=== PATIENT | male | born 1950 | race Caucasian/White ===

== ENCOUNTER 2016-11-19 14:40 | Inpatient (IN) | payer OTHER ==
[~2016-11-19] VITALS: Ht 175.3 cm; Wt 104.5 kg
--- NOTE | ~2016-11-19 | CATHLAB ---
[facility] [address] [place] [address] INVASIVE PROCEDURE REPORT Name: SMALLMARIBETH Room #: 217-P [facility] IN .R.#: [id number] Admission: 11/19/16 Attend Phys: Hiro De La Cruz, Discharge: Date of : 54 Date of Service: 11/19/16 1848 Report #: [id number] THIS REPORT FOR: //name// CC: Hiro Humphrey DATE OF SERVICE: 11/19/2016 PROCEDURES: Left ventriculography, coronary angiography, abdominal aortography, PTCA stent to proximal LAD. DESCRIPTION OF PROCEDURE: The patient brought to the catheterization lab, had chest pain on and off for the last 4 hours. Troponin was negative. However, there were some subtle non-ST segmented changes of his EKG. Prior proximal LAD stents x 2. Last intervention was in 2012. He was lost to follow and relatively noncompliant with cardiovascular meds. He states he had some statin issues, takes none and a beta-neeraj; however, this was probably not a true allergy as he is said to being bradycardic. He was tachycardic here. IV Lopressor was administered without incident. I utilized a 4.0 EBU guide, 0.014 Luge wire for subtotal proximal LAD, proximal to the previously placed stents. The diagonal was previously jailed by the stents with mild encroachment and relatively small. The circumflex OM was large with mild disease. The dominant right had eccentric proximal lesion of 70% to 75% and a more distal lesion of 70%, which is somewhat hazy. This is a large, dominant vessel that may be placed for intervention down the road, but not in this setting. LV function in the anterior lateral wall lag, EF 40% to 45%. I utilized heparin and Integrilin. Additional heparin was given. He had been on a heparin drip and Integrilin bolus and drip and p.o. Effient. I utilized a 2.5 balloon with some difficulty, I was able to cross and exchanged over the wired magnet for a 3.0 x 14 drug-eluting stent and postdilated that up to 20 atmospheres, which is 3.5 mm in size. It slightly was telescoped into the prior stents. There was encroachment in the diagonal branch for the small and it was elected not to try to intervene, did not look significantly worse, but was able to restore PREET grade 3 flow and there was excellent apposition of this stent and slightly overlapped the prior stent. Resolution of EKG changes, subtle and chest pain that resolved completely. The vascular sheath is secured. Transferred to CCU in improved and guarded condition. He was hypertensive apparently. Hemodynamics was 170/90, LV 170/22. IMPRESSION: 1. Successful percutaneous transluminal coronary angioplasty stent of the proximal left anterior descending coronary artery, subtotal lesion proximal to prior stents with slight overlap, placed a 3.0 x 15 Resolute postdilated 3.5 mm in size, PREET grade 3 flow. 2. Ostial diagonal branch 70%, we will treat that medically. [address] [address] INVASIVE PROCEDURE REPORT Name: MARIBETH SMALL Room #: 217-P [facility] IN M.R.#: [id number] Admission: 11/19/16 Attend Phys: Hiro De La Cruz, Discharge: Date of : 54 Date of Service: 11/19/168 Report #: [id number] 3. Left main with mild ostial disease, 20% to 30%. 4. Circumflex marginal, large but nondominant, mild disease. 5. Large dominant right with an eccentric 75% proximal lesion and a more distal 70% hazy lesion; otherwise, the vessels well preserved and large. These 2 areas may need intervention at a later date, certainly not flow limiting at this time and the inferior wall is showing normal contractility. 6. Normal left ventricular size with anterior apical wall and lateral wall lag, ejection fraction of 45%. 7. Abdominal aorta is intact, mildly ectatic. RECOMMENDATIONS: Continue aggressive risk factor modification, dual antiplatelet therapy, p.o. Effient has been given. Integrilin drip will be maintained. Additional heparin was given. Vascular sheath removed in the CCU. No lifting for 48 hours. No lying in tub, Jacuzzi, or cantrell for a week. No MRI or dental work for 3 months. <ELECTRONICALLY SIGNED> By: Hiro De La Cruz MD, FACC 11/22/16 0903 1848 2324 Hiro De La Cruz MD, FACC /nt
--- NOTE | ~2016-11-19 | 2DMMODE ---
[facility] [address] [address] 2 D/M-MODE ECHOCARDIOGRAM Name: MARIBETH SMALL Room #: 217-P [facility] IN ..#: [id number] Admission: 11/19/16 Attend Phys: Hiro De La Cruz, Discharge: Date of : 54 Date of Service: 11/21/16 1127 Report #: [id number] THIS REPORT FOR: //name// APPROVED REPORT EXAM: Comprehensive 2D, Doppler, and color-flow Echocardiogram Patient Location: Bedside Blood Pressure: 91/54 mmHg HR: 102 bpm Other Information Study Quality: Adequate Indications CAD Hypertension/HDD Chest Pain 2D Dimensions LVEF(%): 35.09 (>50%) IVSd: 9.63 (7-11mm) LVOT Diam: 20.00 (18-24mm) LVDd: 37.61 mm PWd: 10.64 (7-11mm) Ascending Aorta: 34.38 mm LVDs: 31.44 (25-40mm) Rivero's LVEF: 35.09 % Volumes Left Atrial Volume (Systole) Single Plane 4CH: 40.00 mL Single Plane 2CH: 26.67 mL LA ESV Index: 17.00 mL/m2 Aortic Valve AoV Peak Homer.: 1.12 m/s AO Peak Gr.: 5.60 mmHg LV Max P.80 mmHg LV Max: 0.97 m/s Mitral Valve MV PHT: 34.84 ms MV E Max Homer.: 0.62 m/s E/A Ratio: 0.6 MV A Homer.: 1.07 m/s MV Decel. Time: 120.14 ms [facility] [address] [place] [address] 2 D/M-MODE ECHOCARDIOGRAM Name: MARIBETH SMALL Room #: 217-P [facility] IN [facility].#: [id number] Admission: 11/19/16 Attend Phys: Hiro De La Cruz, Discharge: Date of : 54 Date of Service: 11/21/16 1127 Report #: [id number] Pulmonary Valve PV Peak Homer.: 0.85 m/s PV Peak Gr.: 2.87 mmHg Tricuspid Valve RAP Estimate: 5.00 mmHg Left Ventricle The left ventricle is normal size. There is moderate to severe hypokinesis in the anterior, mid-distal septal, and apical clinton. There is normal left ventricular wall thickness. Left ventricular systolic function is mild to moderately decreased. LVEF is 35 40% Transmitral Doppler flow pattern suggests impaired LV relaxation. Right Ventricle The right ventricle is normal size. The right ventricular systolic function is normal. Atria The left atrium size is normal. The right atrium size is normal. Aortic Valve The aortic valve is normal in structure. No aortic regurgitation is present. There is no aortic valvular stenosis. Mitral Valve The mitral valve is normal in structure. There is no mitral valve regurgitation noted. Tricuspid Valve The tricuspid valve is normal in structure. There is no tricuspid valve regurgitation noted. Pulmonic Valve The pulmonary valve is normal in structure. There is no pulmonic valvular regurgitation. Great Vessels The aortic root is normal in size. IVC is normal in size and collapses >50% with inspiration. Pericardium There is no pericardial effusion. <Conclusion> [facility] [address] [place] [address] 2 D/M-MODE ECHOCARDIOGRAM Name: MARIBETH SMALL Room #: 217-P [facility] IN .R.#: [id number] Admission: 11/19/16 Attend Phys: Hiro De La Cruz, Discharge: Date of : 54 Date of Service: 11/21/16 1127 Report #: [id number] The left ventricle is normal size. There is normal left ventricular wall thickness. Left ventricular systolic function is mild to moderately decreased.ant apical dital septal mod -severe hypokinetic LVEF is 35 40% Transmitral Doppler flow pattern suggests impaired LV relaxation. The left atrium size is normal. The aortic valve is normal in structure. There is no mitral valve regurgitation noted. There is no pericardial effusion. The pulmonary valve is normal in structure. The tricuspid valve is normal in structure. The mitral valve is normal in structure. There is no pericardial effusion. <ELECTRONICALLY SIGNED> By: Hiro De La Cruz MD, [facility] 11/21/16 1127 112 26 Hiro De La Cruz MD, [facility] /INF
--- NOTE | ~2016-11-19 | EKG ---
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 : 1950 Requested By: Phong Moreira Order Number: [id number] MD: El Perdomo Measurements Intervals [place] Rate: 86 P: 18 [place]: 134 QRS: 26 QRSD: 87 T: -3 QT: 361 QTc: 432 Interpretive Statements Sinus rhythm Anterior infarct,age-indeterminate Minimal ST depression, inferior leads No previous ECG available for comparison Electronically Signed On 11-21-2016 15:07:54 CDT by El Perdomo [email or web address] <ELECTRONICALLY SIGNED> By: El Perdomo MD, [facility] 11/21/16 1507 1615 14 El Perdomo MD, [facility] /EPI
--- NOTE | ~2016-11-19 | EKG ---
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 : 1950 Requested By: Hiro De La Cruz Order Number: [id number] MD: El Perdomo Measurements Intervals [place] Rate: 102 P: 62 [place]: 149 QRS: 78 QRSD: 86 T: 94 QT: 359 QTc: 468 Interpretive Statements Sinus tachycardia Consider right atrial enlargement Anterior infarct, age-indeterminate No previous ECG available for comparison Electronically Signed On 11-21-2016 15:14:49 CDT by El Perdomo [email or web address] <ELECTRONICALLY SIGNED> By: El Perdomo MD, [facility] 11/21/16 1514 D: 03754 075 El Perdomo MD, FACC /EPI
--- NOTE | ~2016-11-19 | H ---
[facility] [place] [address] HISTORY AND PHYSICAL Name: MARIBETH SMALL Room #: 217-P ADM IN M.R.#: [id number] Admission: 11/19/16 Attend Phys: Hiro De La Cruz MD, Discharge: Date of : 54 Report #: [id number] THIS REPORT FOR: //name// CC: Hiro Humphrey DATE OF SERVICE: 11/19/2016 HISTORY OF PRESENT ILLNESS: The patient is a 66-year-old male who has been lost to follow up with us from since 05/2013. Dr. Perdomo who apparently re-dilated and stented an LAD. It looks like at [facility] prior to that he had had an LAD bifurcating lesion and was stented and then dilated this diagonal branch. His home medications hydrocodone for chronic back pain, oxycodone, tizanidine, levothyroxine, sublingual nitroglycerin, diltiazem 180, irbesartan 300 and Imdur 30. Apparently had some issues with beta-blockers and statins in the past and contrast dye, although all of this is very questionable. He has some intense substernal chest pain with some features like prior cardiac pain, but not very difficult to figure out exactly which is which. There is some nonspecific ST abnormalities noted in inferior leads and looks like an old anterior septal infarct, but there is no ST elevation. PAST MEDICAL HISTORY: Positive for coronary artery disease with prior stents, hypertension, chronic pain, narcotic use, splenectomy, nephrolithiasis, STATIN INTOLERANCE WITH SUSPECTED HYPERCHOLESTEROLEMIA, hypertension and tobacco use. SOCIAL HISTORY: He is accompanied by his . He is disabled. He smokes. No alcohol. FAMILY HISTORY: Positive family history, although he is not sure who, believes possibly brother or father. LABORATORY WORK: Sodium 136, potassium 3.8 and creatinine 1.1. Liver function tests looked to be normal. Alk phos is elevated at 124. Magnesium 1.7, being replaced. Troponin is negative, less than 0.04. Lipids are pending. H and H is 14 and 42 with the white count of 15.5. Chest x-ray: No acute process. No acute findings. PHYSICAL EXAMINATION: VITAL SIGNS: His pulse is sinus, 110 to 120. Seems easily agitated, but he is sleeping ____ and telling me that he has pain. Blood pressure 150/100. It was higher. HEENT: Eyes reveal xanthelasmas. Pharynx is clear. NECK: Shows preserved upstrokes without JVD or bruits. LUNGS: Prolonged expiratory phase. CARDIAC: Regular rate and rhythm. S1 and S2 distant. [facility] [address] [place] [address] HISTORY AND PHYSICAL Name: MARIBETH SMALL Room #: 217-P [facility] IN M.R.#: [id number] Admission: 11/19/16 Attend Phys: Hiro De La Cruz MD, Discharge: Date of : 54 Report #: [id number] ABDOMEN: Soft and slightly tender in the midepigastric. EXTREMITIES: No edema. Pulses diminished. NEUROLOGIC: Nonfocal. SKIN: Warm and dry without xanthoma or ulcer. MUSCULOSKELETAL: Generalized arthritic changes. ASSESSMENT: 1. Chest pain. 2. Coronary artery disease with history of prior left anterior descending diagonal stents, last intervention in 2012. 3. 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 4. Hypercholesterolemia. 5. Hypertension. 6. Noncompliance. 7. Chronic pain, on opioid usage. RECOMMENDATIONS AND PLAN: I did ____ he just has myalgias. We will give aspirin and Lipitor. He is on a heparin drip and we will proceed to the clinical laboratory manager to delineate the anatomy and possible intervention. I do not see an option here based on his history. Although this is questionable. No definite acute EKG changes, but persistent pain. I will also try GI cocktail. Risks, benefits and alternatives were discussed with him. We will proceed on. <ELECTRONICALLY SIGNED> By: Hiro De La Cruz MD, FACC 11/22/16 0904 1705 1904 Hiro De La Cruz MD, FACC /nt
--- NOTE | ~2016-11-19 | EKG ---
[place] [address] [address] [facility] [employer] [place] [address] ELECTROCARDIOGRAM REPORT Name: STACIMARIBETH Room #: 217-P ADM IN M.R.#: [id number] Admission: 11/19/16 Attend Phys: Hiro De La Cruz MD, Discharge: Date of : 54 Report #: [id number] THIS REPORT FOR: //name// 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
[~2016-11-19 14:40] MED LIST: ACETAMINOPHEN325 M1 PO; ADULT LOW DOSE81 MG PO; ASPIRIN325 PO; AVAPRO 150 MG150 M1 PO; AVAPRO300 MG PO; CARDIZEM CD180 MG PO; CARISOPRODOL 3350 M1 PO; COLACE100 MG PO; EFFIENT10 MG PO; HYDROCODON-ACE1 EAC4 PO; IBUPROFEN 600600 M1 PO; IMDUR 30 MG TAB30 M1 PO; LEVOTHROID125 MCG PO; MEDROL DOSPAK21 TA1 PO; MEDROLDOSEPACK; NITROGLYCERIN0.4 MG SL; NORCO 5-325 TA1 EACH PO; OXYCODONE HCL5 M1 PO; PERCOCET 5-3251 EACH PO; PERCOCET 7.5-51 EACH PO; PREDNISONE 20 M20 MG PO; PROAIR HFA8.5 GM IH; ROXICODONE5 M1 PO; TAMSULOSIN HCL0.4 MG PO; TIZANIDINE HCL4 MG PO; ZOFRAN ODT4 MG PO
[2016-11-19 14:44] VITALS: BP 157/82
[2016-11-19 15:12] LABS: ABSOLUTE NEUTROPHILS 11.9 thou/uL (1.4-8.2); BASOPHILS 0.5 % (0.0-2.0); EOSINOPHILS 0.2 % (0.0-3.0); HEMATOCRIT 42.9 % (42.0-52.0); HEMOGLOBIN 14.4 gm/dL (14.0-18.0); MCH 29.6 pg (26.0-34.0); MCHC 33.5 g/dL (28.0-37.0); MCV 88.1 fL (80.0-100.0); MONOCYTES 2.1 % (1.0-8.0); PLATELET COUNT 269 thou/uL (150-400); POLYS 77.2 % (36.0-66.0); RBC 4.87 mil/uL (4.50-6.00); RDW 14.2 % (10.5-14.5); WBC 15.5 thou/uL (4.0-11.0)
[2016-11-19 15:15] LABS: MANUAL DIFF NO
[2016-11-19 15:18] LABS: ANION GAP 12 mmol/L (7-16); BUN 15 mg/dL (7-18); CALCIUM 8.8 mg/dL (8.5-10.1); CHLORIDE 102 mmol/L (98-107); CO2 22 mmol/L (21-32); CREATININE 1.1 mg/dL (0.6-1.3); GLUCOSE 206 mg/dL (70-99); POTASSIUM 3.8 mmol/L (3.5-5.1); SODIUM 136 mmol/L (136-145)
[2016-11-19 15:26] LABS: ALBUMIN 3.4 g/dL (3.4-5.0); ALKALINE PHOSPHATASE 124 U/L (46-116); MAGNESIUM 1.7 mg/dL (1.8-2.4); SGOT 37 U/L (15-37); SGPT 43 U/L (30-65); TOTAL BILIRUBIN 0.3 mg/dL (<0.1-1.0); TOTAL PROTEIN 6.9 g/dL (6.4-8.2); TROPONIN-I < 0.04 ng/mL (<0.04-0.07)
[2016-11-19 16:30] LABS: APTT 26.1 Seconds (24.5-32.8); PROTIME 10.5 Seconds (9.3-11.4)
[2016-11-19 20:06] VITALS: BP 146/89
[2016-11-20 00:13] VITALS: BP 150/99
[2016-11-20 04:16] LABS: HEMATOCRIT 43.7 % (42.0-52.0); HEMOGLOBIN 14.6 gm/dL (14.0-18.0); MCH 29.4 pg (26.0-34.0); MCHC 33.3 g/dL (28.0-37.0); MCV 88.2 fL (80.0-100.0); RBC 4.96 mil/uL (4.50-6.00); RDW 14.2 % (10.5-14.5); WBC 15.9 thou/uL (4.0-11.0)
[2016-11-20 04:44] LABS: ANION GAP 9 mmol/L (7-16); BUN 15 mg/dL (7-18); CALCIUM 8.9 mg/dL (8.5-10.1); CHLORIDE 101 mmol/L (98-107); CHOLESTEROL 292 mg/dL (<200); CO2 25 mmol/L (21-32); GLUCOSE 181 mg/dL (70-99); HDL CHOLESTEROL 87 mg/dL (>40); LDL CHOLESTEROL 186 mg/dL (<100); POTASSIUM 4.5 mmol/L (3.5-5.1); SODIUM 135 mmol/L (136-145); TC:HDL 3.4 Ratio (Not establshd); TRIGLYCERIDE 95 mg/dL (<150); VLDL 19 mg/dL (<40)
[2016-11-20 05:04] LABS: TROPONIN-I 70.55 ng/mL (<0.04-0.07)
[2016-11-20 08:26] VITALS: BP 126/63
[2016-11-20 11:04] VITALS: BP 134/78
[2016-11-20 15:50] VITALS: BP 115/71
[2016-11-20 20:34] VITALS: BP 104/68
[2016-11-20 23:43] VITALS: BP 93/61
[2016-11-21 05:02] VITALS: BP 103/60
[2016-11-21 08:50] VITALS: BP 91/54
[2016-11-21 12:00] VITALS: BP 89/44
[2016-11-21 16:00] VITALS: BP 98/63
[2016-11-21 20:00] VITALS: BP 97/58
[2016-11-22 03:50] VITALS: BP 97/65
[2016-11-22 07:50] VITALS: BP 98/65
[2016-11-22] MEDS ORDERED: COZAAR 50 MG TA50 M1 PO (08:41)
[2016-11-22] MEDS ORDERED: ATORVASTATIN CA40 MG PO (08:41)
[2016-11-22] MEDS ORDERED: BYSTOLIC 5 MG5 M1 PO (08:41)
[2016-11-22] MEDS ORDERED: EFFIENT10 MG PO (08:41)
[2016-11-22] MEDS ORDERED: ASPIRIN325 PO (08:42)
[2016-11-22] MEDS ORDERED: PROTONIX40 M4 PO (08:46)
[2016-11-22 09:59] VITALS: BP 98/65
== END 2016-11-22 10:50 | disposition home or self-care (01) | DRG 249 ==
LOC: ER 14:40 → EROBS 16:20 → 2N 16:20
PROVIDERS: Emergency Medicine; Internal Medicine Cardiovascular Disease
PROC: B2151ZZ Fluoroscopy of Left Heart using Low Osmolar Contrast (ICD-10-PCS; principal; 2016-11-19)
PROC: 02703DZ Dilation of Coronary Artery, One Artery with Intraluminal Device, Percutaneous Approach (ICD-10-PCS; principal; 2016-11-19)
PROC: B2111ZZ Fluoroscopy of Multiple Coronary Arteries using Low Osmolar Contrast (ICD-10-PCS; principal; 2016-11-19)
PROC: B4101ZZ Fluoroscopy of Abdominal Aorta using Low Osmolar Contrast (ICD-10-PCS; principal; 2016-11-19)
PROC: 4A023N7 Measurement of Cardiac Sampling and Pressure, Left Heart, Percutaneous Approach (ICD-10-PCS; principal; 2016-11-19)
DX: I25.10 Atherosclerotic heart disease of native coronary artery without angina pectoris (principal); I10 Essential (primary) hypertension; E03.9 Hypothyroidism, unspecified; G89.29 Other chronic pain; M54.9 Dorsalgia, unspecified; F11.90 Opioid use, unspecified, uncomplicated; E78.00 Pure hypercholesterolemia, unspecified; I25.5 Ischemic cardiomyopathy; Z91.19 Patient's noncompliance with other medical treatment and regimen; Z79.82 Long term (current) use of aspirin; Z79.899 Other long term (current) drug therapy; Z88.8 Allergy status to other drugs, medicaments and biological substances; Z91.041 Radiographic dye allergy status; Z79.891 Long term (current) use of opiate analgesic; Z90.81 Acquired absence of spleen; Z87.442 Personal history of urinary calculi
CPT/HCPCS: 10081

== ENCOUNTER 2017-05-26 05:29 | Emergency (ER) | payer OTHER ==
[~2017-05-26] VITALS: Ht 175.3 cm; Wt 99.8 kg
--- NOTE | ~2017-05-26 | EKG ---
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
[~2017-05-26 05:29] MED LIST changes: +ATORVASTATIN CA40 MG PO; +BYSTOLIC 5 MG5 M1 PO; +COZAAR 50 MG TA50 M1 PO; +PROTONIX40 M4 PO
[2017-05-26 06:46] LABS: ABSOLUTE NEUTROPHILS 8.9 thou/uL (1.4-8.2); BASOPHILS 1.3 % (0.0-2.0); EOSINOPHILS 3.2 % (0.0-3.0); HEMOGLOBIN 13.5 gm/dL (14.0-18.0); LYMPHOCYTES 31.8 % (24.0-44.0); MCH 29.6 pg (26.0-34.0); MCHC 33.8 g/dL (28.0-37.0); MCV 87.7 fL (80.0-100.0); MONOCYTES 6.6 % (1.0-8.0); PLATELET COUNT 279 thou/uL (150-400); POLYS 57.1 % (36.0-66.0); RBC 4.57 mil/uL (4.50-6.00); RDW 15.1 % (10.5-14.5); WBC 15.5 thou/uL (4.0-11.0)
[2017-05-26 06:49] LABS: MANUAL DIFF NO
[2017-05-26 06:59] LABS: ANION GAP 8 mmol/L (7-16); BUN 13 mg/dL (7-18); CHLORIDE 105 mmol/L (98-107); CO2 26 mmol/L (21-32); CREATININE 0.7 mg/dL (0.7-1.3); GLUCOSE 96 mg/dL (74-106); POTASSIUM 4.1 mmol/L (3.5-5.1); SODIUM 139 mmol/L (136-145)
[2017-05-26 07:00] LABS: APTT 30.1 Seconds (24.5-32.8); PROTIME 10.7 Seconds (9.3-11.4)
[2017-05-26 07:04] LABS: ALBUMIN 3.2 g/dL (3.4-5.0); ALKALINE PHOSPHATASE 125 U/L (46-116); SGOT 20 U/L (15-37); SGPT 17 U/L (30-65); TOTAL BILIRUBIN 0.3 mg/dL (<0.1-1.0); TOTAL PROTEIN 6.8 g/dL (6.4-8.2); TROPONIN-I < 0.04 ng/mL (<0.04-0.07)
[2017-05-26] MEDS ORDERED: OXYCODONE HCL10 MG PO (07:09)
[2017-05-26] MEDS ORDERED: PREDNISONE 20 M20 MG PO (07:09)
[2017-05-26 07:36] VITALS: BP 153/98
== END 2017-05-26 08:12 | disposition home or self-care (01) ==
LOC: ER 05:29
PROVIDERS: Emergency Medicine
DX: Z76.0 Encounter for issue of repeat prescription (principal); M94.0 Chondrocostal junction syndrome [Tietze]; S20.211A Contusion of right front wall of thorax, initial encounter; I25.10 Atherosclerotic heart disease of native coronary artery without angina pectoris; I10 Essential (primary) hypertension; E03.9 Hypothyroidism, unspecified; G89.29 Other chronic pain; M54.9 Dorsalgia, unspecified; F17.210 Nicotine dependence, cigarettes, uncomplicated; Z88.8 Allergy status to other drugs, medicaments and biological substances; Z91.041 Radiographic dye allergy status; W18.39XA Other fall on same level, initial encounter; Y93.89 Activity, other specified; Y92.89 Other specified places as the place of occurrence of the external cause; Y99.8 Other external cause status

== ENCOUNTER 2017-09-25 05:11 | Emergency (ER) | payer OTHER ==
[~2017-09-25] VITALS: Ht 175.3 cm; Wt 106.6 kg
--- NOTE | ~2017-09-25 | EKG ---
[place] [address] [place] [address] ELECTROCARDIOGRAM REPORT Name: MARIBETH SMALL [facility] [id number] Admission: 09/25/17 Attend Phys: Discharge: 09/25/17 Date of : 54 Report #: [id number] THIS REPORT FOR: //name// [facility] ED Test Date: 2017-09-25 Test Time: 06:14:25 Pat Name: MARIBETH SMALL Department: Room: Gender: Stadium Manager: SANGITA : 1950 Requested By: Yandel Gallagher Order Number: [id number] MD: Anirudh Ponce Measurements Intervals [place] Rate: 93 P: 30 [place]: 159 QRS: 48 QRSD: 96 T: 60 QT: 358 QTc: 446 Interpretive Statements Sinus rhythm Anterior infarct, old Baseline wander in lead(s) V2 Compared to ECG 05/26/2017 06:30:16 No significant changes Electronically Signed On 09-25-2017 9:54:52 RN HEMODIALYSIS by Anirudh Ponce [email or web address] <ELECTRONICALLY SIGNED> By: Anirudh Ponce MD 09/25/17 0954 0614 0614 Anirudh Ponce MD /DANY
--- NOTE | ~2017-09-25 | D ---
[facility] [place] [address] DISCHARGE SUMMARY Name: STACIMARIBETH Room #: DEP MARLY Valerio#: [id number] Admission: 09/25/17 Attend Phys: Discharge: 09/25/17 Date of : 54 Report #: [id number] THIS REPORT FOR: //name// CC: Merced Humphrey DATE OF SERVICE: 09/25/2017 HOSPITAL COURSE: The patient is a 66-year-old male admitted with abnormal stress test and some stable anginal symptoms. Subsequently, the catheterization lab revealed proximal RCA and distal RCA lesions. They were successfully dilated and stented. Marked improvement in the distal flow. Mild LAD and circ disease. Prior LAD, no other occlusive disease was noted. He had a 2.7. DICTATION ENDS HERE. <ELECTRONICALLY SIGNED> By: Hiro De La Cruz MD, FACC 10/06/17 2137 0934 1753 Hiro De La Cruz MD, FACC /nt
[~2017-09-25 05:11] MED LIST changes: +OXYCODONE HCL10 MG PO; +ROXICODONE5 M2 PO
[2017-09-25 06:35] LABS: ABSOLUTE NEUTROPHILS 9.6 thou/uL (1.4-8.2); BASOPHILS 0.6 % (0.0-2.0); EOSINOPHILS 1.2 % (0.0-3.0); LYMPHOCYTES 26.7 % (24.0-44.0); MCH 29.4 pg (26.0-34.0); MCHC 33.3 g/dL (28.0-37.0); MCV 88.1 fL (80.0-100.0); MONOCYTES 6.4 % (1.0-8.0); PLATELET COUNT 319 thou/uL (150-400); POLYS 65.1 % (36.0-66.0); RBC 5.11 mil/uL (4.50-6.00); RDW 13.9 % (10.5-14.5); WBC 14.8 thou/uL (4.0-11.0)
[2017-09-25 06:48] LABS: ANION GAP 11 mmol/L (7-16); BUN 20 mg/dL (7-18); CALCIUM 8.8 mg/dL (8.5-10.1); CHLORIDE 106 mmol/L (98-107); CO2 22 mmol/L (21-32); CREATININE 0.9 mg/dL (0.7-1.3); GLUCOSE 123 mg/dL (74-106); POTASSIUM 4.2 mmol/L (3.5-5.1); SODIUM 139 mmol/L (136-145)
[2017-09-25 06:56] LABS: ALBUMIN 3.2 g/dL (3.4-5.0); MAGNESIUM 2.1 mg/dL (1.8-2.4); SGOT 20 U/L (15-37); SGPT 30 U/L (30-65); TOTAL BILIRUBIN 0.2 mg/dL (<0.1-1.0); TOTAL PROTEIN 6.9 g/dL (6.4-8.2); TROPONIN-I < 0.04 ng/mL (<0.06)
[2017-09-25] MEDS ORDERED: PENICILLIN VK500 M1 PO (07:30)
[2017-09-25 08:21] VITALS: BP 152/83
[2017-09-25 08:34] LABS: URINE BILIRUBIN NEGATIVE (Negative); URINE BLOOD NEGATIVE (Negative); URINE CLARITY CLEAR; URINE COLOR YELLOW; URINE GLUCOSE-RANDOM* NEGATIVE (Negative); URINE KETONES NEGATIVE (Negative); URINE LEUKOCYTES-REFLEX NEGATIVE (Negative); URINE NITRITE-REFLEX NEGATIVE (Negative); URINE PROTEIN (DIPSTICK) NEGATIVE (Negative); URINE UROBILINOGEN 0.2 E.U./dl (0.2-1.0)
[2017-09-25 08:46] LABS: AMP/METHAMP Negative (Negative); BARBITURATES Negative (Negative); BENZODIAZEPINES POSITIVE (Negative); COCAINE Negative (Negative); METHADONE Negative (Negative); OPIATES POSITIVE (Negative); PCP Negative (Negative)
== END 2017-09-25 08:23 | disposition home or self-care (01) ==
LOC: ER 05:11
PROVIDERS: Emergency Medicine
DX: J06.9 Acute upper respiratory infection, unspecified (principal); M54.5 Low back pain; G89.29 Other chronic pain; I10 Essential (primary) hypertension; E03.9 Hypothyroidism, unspecified; I25.10 Atherosclerotic heart disease of native coronary artery without angina pectoris; F17.210 Nicotine dependence, cigarettes, uncomplicated; Z88.1 Allergy status to other antibiotic agents

== ENCOUNTER 2017-09-30 06:48 | Outpatient (CLI) | payer OTHER ==
[~2017-09-30] VITALS: Ht 175.3 cm; Wt 108.9 kg
--- NOTE | ~2017-09-30 | CATHLAB ---
[facility] [place] [address] INVASIVE PROCEDURE REPORT Name: SMALLMARIBETH Room #: [facility] KADE Valerio#: [id number] Admission: 09/30/17 Attend Phys: Hiro De La Cruz, Discharge: 10/01/17 Date of : 54 Date of Service: 11/09/17 1448 Report #: [id number] THIS REPORT FOR: //name// APPROVED REPORT Patient Details Patient Status: In-Patient Room #: The patient is a 66 year-old male Event Personnel Hiro De La Cruz Cooler Conveyor Loader, Bakari Anthony RN, Genny Johnson Sandifer, David Monitor Procedures Performed Art Access - R femoral artery* Left Heart Cath w/or w/o Coronaries [id number] [facility] MARK Place w/wo Plasty Single RCA [id number] 22882 Initial Mod Sed Same Phys/QHP Gr5y [id number] 61792 Mod Sed Same Phys/QHP Ea [id number] Procedure Narrative The patient was brought urgently to the Cardiac Catheterization Laboratory and was prepped and draped in a sterile manner. A 6 fr sheath was inserted into the right femoral artery. Coronary angiography was performed using coronary diagnostic catheters. The right coronary system was accessed and visualized with a JR 4 catheter. The left coronary system was accessed and visualized with a JL 4 catheter. The left ventricle was accessed and visualized with a Pigtail catheter. Left ventriculogram was performed in UP projection. An aortogram of the abdominal aorta was performed. Closure device was deployed with a 6 Fr Mynx. The patient tolerated the procedure well and there were no complications associated with the procedure. There was no hematoma. Fluoro Time: 10.80 minutes Dose: DAP 49635.00 cGycm2 Contrast Type and Amount: Omnipaque 155 ml Hemodynamics The aortic pressure is 115/76 mmHg with a mean of 93 mmHg. PCI Technique Lesion Percutaneous coronary intervention was performed on the mid right coronary artery. A LAUNCHER 6FR JR 4 #[id number] Guide Catheter was used to engage the ostium. A Luge Wire .014 x 182CM #[id number] Interventional Guidewire was used to cross the lesion. [facility] [address] [place] [address] INVASIVE PROCEDURE REPORT Name: MARIBETH SMALL Room #: [facility] Iman#: [id number] Admission: 09/30/17 Attend Phys: Hiro De La Cruz, Discharge: 10/01/17 Date of : 54 Date of Service: 11/09/17 1448 Report #: [id number] BALLOON DILATION A Balloon catheter Sprinter OTW 2.5 x 12 #[id number] was inserted and inflated up to 8.00atm for 13seconds. STENT DEPLOYMENT A drug-eluting stent RESOLUTE OTW 2.75 X 14 #[id number] was inserted and inflated up to 12.00atm for 22seconds. STENT DEPLOYMENT A drug-eluting stent RESOLUTE OTW 2.75 X 12 #[id number] was inserted and inflated up to 15.00atm for 27seconds. Additional Inflation: 18.00atm for 26seconds. PCI Technique Lesion 2 Percutaneous Coronary Intervention was performed on the proximal right coronary artery. Conclusion #1 successful PTCA stent of the proximal RCA lesion with a 27 5 x 14 drug-eluting stent to 3.1 mm. #2 successful PTCA stent of the mid distal RCA lesion with a 2.75 x 12 drug-eluting stent to 3.0 mm healed in 0% residual and PREET grade 3 flow this is a dominant vessel. #3 left main with mild disease giving rise to LAD and circumflex and ramus branch #4 proximal LAD previously stented mild in-stent restenosis otherwise widely patent vessel to the apex #5 ramus intermedius branch is widely patent #6 smaller nondominant circumflex patent #7 normal left ventricular size with mild inferior hypokinesis #8 abdominal aorta is intact with without significant aneurysm formation. #9 selective left and right renal arteries have mild ostial disease left greater than right Radiation plan continue aggressive risk factor modification dual antiplatelet therapy to continue to the CCU in stable condition <ELECTRONICALLY SIGNED> By: Hiro De La Cruz MD, FACC 11/09/17 1448 1448 1448 Hiro De La Cruz MD, FACC /INF
--- NOTE | ~2017-09-30 | EKG ---
[address] [address] ELECTROCARDIOGRAM REPORT Name: SMALLMARIBETH K Room #: 215-[facility]#: [id number] Admission: 09/30/17 Attend Phys: Hiro De La Cruz MD, Discharge: Date of : 54 Report #: [id number] THIS REPORT FOR: //name// 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
--- NOTE | ~2017-09-30 | D ---
[facility] [place] [address] DISCHARGE SUMMARY Name: MARIBETH SMALL Room #: DEP Drew Valerio#: [id number] Admission: 09/30/17 Attend Phys: Hiro De La Cruz MD, Discharge: 10/01/17 Date of : 54 Report #: [id number] THIS REPORT FOR: //name// CC: Hiro Humphrey MD DATE OF SERVICE: 10/01/2017 HOSPITAL COURSE: A 66-year-old male admitted with stable anginal symptoms, abnormal stress test showing inferior wall ischemia. Old stent in his LAD, which was widely patent. We brought him to the catheterization lab. The dominant right had a 90% proximal and a 95% distal more longer lesion in the RCA. This was subsequently dilated and stented with a 2.75 x 14 in the distal segment up to 3.1 mm and 2.75 x 12 proximal up to 3.1 mm. PREET grade 3 was noted. Heparin and Integrilin were utilized. He is up and ambulating, doing well. He feels much better he stated. Troponin is 0.09. His H and H and creatinine are pending. I expect them to remain normal. DISCHARGE MEDICATIONS: He will be discharged to home on his home medications. These will include Effient 10 mg a day, full aspirin 325 for a month and back down to a baby, metoprolol succinate 100 a day, losartan 50, Pen-Vee K to complete his course of antibiotics that he had prior to coming in, oxycodone p.r.n., Ambien p.r.n. He has failed statins. We gave him some statin here, but we may need to consider asking PCSK9 injections. He has failed simvastatin, atorvastatin, pravastatin, lovastatin and rosuvastatin now. His LDL was 188, so certainly not in our favor. We will initiate PCSK9 inhibitors when he returns in followup. This has been initiated since his last visit. No lifting for 48 hours. No lying in tub, Jacuzzi or [place] for a week. No MRI or dental work for 3 months. DISCHARGE DIAGNOSES: 1. Coronary artery disease, successful percutaneous transluminal coronary angioplasty stent of the proximal and distal right coronary artery lesions as stated above. Mild left anterior descending and circumflex disease. 2. Hypertension. 3. Hypercholesterolemia. 4. Borderline diabetes. A followup is scheduled in 3 months in my office. [address] [address] DISCHARGE SUMMARY Name: MARIBETH SMALL Kulwinder Room #: DEP CHINEDU Iman#: [id number] Admission: 09/30/17 Attend Phys: Hiro De La Cruz MD, Discharge: 10/01/17 Date of : 54 Report #: [id number] Thank you for assisting in care of this patient. <ELECTRONICALLY SIGNED> By: Hiro De La Cruz MD, [facility] 10/06/17 2142 [id number] 180 Hiro De La Cruz MD, FACC /nt
--- NOTE | ~2017-09-30 | EKG ---
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
[~2017-09-30 06:48] MED LIST changes: +PENICILLIN VK500 M1 PO
[2017-09-30 07:16] VITALS: BP 137/81
[2017-09-30] MEDS ORDERED: ASPIR 8181 MG PO ×2 (07:34→16:56)
[2017-09-30] MEDS ORDERED: TOPROL XL100 MG PO (07:37)
[2017-09-30 15:49] VITALS: BP 170/84
[2017-09-30 22:30] VITALS: BP 126/68
[2017-10-01 05:20] VITALS: BP 116/56
[2017-10-01 08:09] VITALS: BP 119/71
[2017-10-01 10:13] VITALS: BP 119/71
[2017-10-01 10:40] LABS: HEMATOCRIT 43.2 % (42.0-52.0); HEMOGLOBIN 14.3 gm/dL (14.0-18.0); MCH 29.6 pg (26.0-34.0); MCHC 33.2 g/dL (28.0-37.0); MCV 89.4 fL (80.0-100.0); RBC 4.83 mil/uL (4.50-6.00); RDW 14.2 % (10.5-14.5); WBC 15.7 thou/uL (4.0-11.0)
[2017-10-01 10:47] LABS: CREATININE 0.9 mg/dL (0.7-1.3); POTASSIUM 4.3 mmol/L (3.5-5.1)
[2017-10-01 12:52] VITALS: BP 119/71
== END 2017-10-01 13:25 | disposition home or self-care (01) ==
LOC: CATH 06:48 → 2N 15:36 → CATH 10-01 13:25
PROVIDERS: Internal Medicine Cardiovascular Disease
DX: I25.10 Atherosclerotic heart disease of native coronary artery without angina pectoris (principal); I10 Essential (primary) hypertension; E03.9 Hypothyroidism, unspecified; E78.5 Hyperlipidemia, unspecified; J44.9 Chronic obstructive pulmonary disease, unspecified; I21.3 ST elevation (STEMI) myocardial infarction of unspecified site; F17.210 Nicotine dependence, cigarettes, uncomplicated

== ENCOUNTER → 2019-10-15 | Outpatient (CLI) | payer OTHER ==
[~2019-10-15] MED LIST changes: +ASPIR 8181 MG PO; +TOPROL XL100 MG PO
== END ==
LOC: SJCVCIMAG 09:41
DX: I37.1 Nonrheumatic pulmonary valve insufficiency (principal); I25.10 Atherosclerotic heart disease of native coronary artery without angina pectoris; I25.5 Ischemic cardiomyopathy; I10 Essential (primary) hypertension; E78.01 Familial hypercholesterolemia; J44.9 Chronic obstructive pulmonary disease, unspecified; I25.2 Old myocardial infarction; F17.200 Nicotine dependence, unspecified, uncomplicated; Z91.19 Patient's noncompliance with other medical treatment and regimen; Z98.61 Coronary angioplasty status

== ENCOUNTER 2020-02-03 12:16 | Emergency (ER) | payer OTHER ==
[~2020-02-03] VITALS: Ht 175.3 cm; Wt 110.2 kg
[2020-02-03 12:20] VITALS: BP 176/93
[2020-02-03 13:47] LABS: URINE BILIRUBIN NEGATIVE (Negative); URINE BLOOD TRACE (Negative); URINE CLARITY CLEAR; URINE COLOR YELLOW; URINE GLUCOSE-RANDOM* NEGATIVE (Negative); URINE KETONES NEGATIVE (Negative); URINE LEUKOCYTES-REFLEX NEGATIVE (Negative); URINE NITRITE-REFLEX NEGATIVE (Negative); URINE PROTEIN (DIPSTICK) NEGATIVE (Negative); URINE SPECIFIC GRAVITY 1.025 (1.005-1.035); URINE UROBILINOGEN 0.2 E.U./dl (0.2-1.0)
[2020-02-03 13:55] LABS: AMP/METHAMP Negative (Negative); BARBITURATES Negative (Negative); BENZODIAZEPINES POSITIVE (Negative); COCAINE Negative (Negative); METHADONE Negative (Negative); OPIATES Negative (Negative); PCP Negative (Negative)
== END 2020-02-03 14:20 | disposition left against medical advice (07) ==
LOC: ER 12:16
PROVIDERS: Emergency Medicine
DX: M54.42 Lumbago with sciatica, left side (principal); I25.10 Atherosclerotic heart disease of native coronary artery without angina pectoris; I10 Essential (primary) hypertension; G89.29 Other chronic pain; J44.9 Chronic obstructive pulmonary disease, unspecified; E11.9 Type 2 diabetes mellitus without complications; F17.210 Nicotine dependence, cigarettes, uncomplicated; Z79.899 Other long term (current) drug therapy; Z91.041 Radiographic dye allergy status; Z88.8 Allergy status to other drugs, medicaments and biological substances; Z79.82 Long term (current) use of aspirin

== ENCOUNTER → 2020-11-10 | Outpatient (CLI) | payer OTHER | LOC: SJCVC 14:33 | PROVIDERS: ATTEND Internal Medicine Cardiovascular Disease | DX: I25.10 Atherosclerotic heart disease of native coronary artery without angina pectoris (principal); I25.5 Ischemic cardiomyopathy; I10 Essential (primary) hypertension; E78.01 Familial hypercholesterolemia; J44.9 Chronic obstructive pulmonary disease, unspecified; G89.29 Other chronic pain; J98.4 Other disorders of lung; E78.00 Pure hypercholesterolemia, unspecified; F16.90 Hallucinogen use, unspecified, uncomplicated; F17.210 Nicotine dependence, cigarettes, uncomplicated; Z91.19 Patient's noncompliance with other medical treatment and regimen; Z72.89 Other problems related to lifestyle; Z79.82 Long term (current) use of aspirin; Z79.899 Other long term (current) drug therapy; Z88.1 Allergy status to other antibiotic agents; Z88.8 Allergy status to other drugs, medicaments and biological substances ==

== ENCOUNTER → 2020-12-10 | Outpatient (CLI) | payer OTHER | LOC: SJCVCIMAG 08:17 | PROVIDERS: ATTEND Internal Medicine Cardiovascular Disease | DX: I25.10 Atherosclerotic heart disease of native coronary artery without angina pectoris (principal); R06.00 Dyspnea, unspecified; I10 Essential (primary) hypertension; E78.5 Hyperlipidemia, unspecified; I25.2 Old myocardial infarction; I42.9 Cardiomyopathy, unspecified; Z79.899 Other long term (current) drug therapy ==

== ENCOUNTER 2021-03-05 22:40 | Inpatient (IN) | payer OTHER ==
[~2021-03-05] VITALS: Ht 175.3 cm; Wt 103.8 kg
--- NOTE | ~2021-03-05 | EMS ---
[place] [address] EMS Patient Care Report Name: MARIBETH SMALL Room #: PRE M.R.#: [id number] Admission: Attend Phys: Discharge: Date of : 54 Report #: [id number] THIS REPORT FOR: //name// Report Transmitted: 03/05/2021 22:49 EMS Care Summary [place], [place]/[facility] Incident [id number] @ 03/05/2021 22:06 Incident Location [address] [place] [address] Patient MARIBETH SMALL Male, 70 Years 1950 Patient Address [address] [place] [address] Patient History Hypertension (HTN),Cardiac - Stent,Hypothyroidism, Patient Allergies Other drug allergy, Patient Medications Lorcet, Chief Complaint CHEST PAIN WITH EXERTION Disposition Transported No Lights/[place] Dispatch Reason Chest Pain (Non-Traumatic) Transported To [facility] Narrative DISPATCHED TO A CHEST PAIN. ARRIVED ON SCENE TO FIND MALE PATIENT STANDING IN THE RESTROOM TRYING TO URINATE. PATIENT SAID HE NEEDED TO FINISH BEFORE EVALUATION. PATIENT SAID HE BEGAN HAVING SHARP MIDSTERNAL CHEST PAIN THIS AFTERNOON AFTER DOING SOME YARD WORK. HE SAID IT RADIATED TO [place] [address] EMS Patient Care Report Name: MARIBETH SMALL Room #: PRE Iman#: [id number] Admission: Attend Phys: Discharge: Date of : 54 Report #: [id number] GOTTEN WORSE THROUGHOUT THE DAY. PATIENT SAID HE WOULD LIKE TO WALK OUT OF THE HOUSE TO THE COT AT THE FRONT DOOR. HE WAS ASSISTED TO THE COT, SEATED, SECURED WITH STRAPS, AND MOVED TO THE AMBULANCE FOR FURTHER EVALUATION. PATIENT SAID HE HAD NOT TAKEN ANYTHING FOR THE PAIN YET. HE SAID IT WORSENS WITH PALPATION. HIS VITALS AND A 12 LEAD WERE OBTAINED. IVS WERE ATTEMPTED AND ASPIRIN WAS ADMINISTERED. NITRO WAS WITHHELD DUE TO NO IV. PATIENT WAS TRANSPORTED TO THE HOSPITAL WITH VITALS AND INTERVENTIONS MONITORED. UPON ARRIVAL AT AT THE HOSPITAL PATIENT WAS MOVED TO ED ROOM 9 ON THE COT AND ASSISTED IN MOVING OVER TO THE HOSPITAL BED. PATIENT CARE WAS TURNED OVER TO ED NURSING STAFF. Initial Vitals @22:24MI Suspected: false @22:29P: 105,BP: 121/80, @22:24P: 103,BP: 109/73, @22:19P: 102, @22:15P: 87,SpO2: 98, @22:35P: 107,R: 18,BP: 94/66,Pain: 8/10,GCS: 15,SpO2: 97,Revised Trauma: 12, @22:17P: 106,R: 18,BP: 119/53,Pain: 8/10,GCS: 15,Glucose: 70,SpO2: 98,Revised Trauma: 12, Assessments @22:11MENTAL:Person Oriented,Time Oriented,Place Oriented,Event Oriented,SKIN:Cold,Diaphoresis,HEENT:Head/Face: No Abnormalities,Neck/Airway: No Abnormalities,LUNG SOUNDS:General: No Abnormalities,Left Upper: No Abnormalities,Right Upper: No Abnormalities,Left Lower: No Abnormalities,Right Lower: No Abnormalities,ABDOMEN:General: No Abnormalities,Left Upper: No Abnormalities,Right Upper: No Abnormalities,Left Lower: No Abnormalities,Right Lower: No Abnormalities,PELVIS//GI:No Abnormalities,EXTREMITIES:Capillary Refill: Right Upper: < 2 Sec,Left Arm: No Abnormalities,Right Arm: No Abnormalities,Left Leg: No Abnormalities,Right Leg: No Abnormalities,PULSE:Radial: 2+ Normal,NEURO:No Abnormalities, Impression Chest Pain / Discomfort Procedures @22:2412-Lead ECGResponse: UnchangedSucceeded@22:1912-Lead ECGResponse: UnchangedFailed@22:11ALS AssessmentResponse: UnchangedSucceeded@22:153-Lead ECGResponse: UnchangedSucceeded@22:25Saline Lock 0cc (20 ga) Site: Antecubital-RightResponse: UnchangedFailed@22:23Saline Lock 0cc (20 ga) Site: Antecubital-LeftResponse: UnchangedFailed@22:21Aspirin - 324 Milligrams (mg) - OralResponse: Unchanged Timeline 22:05,Call Received 22:05,Dispatch Notified [address] [address] EMS Patient Care Report Name: MARIBETH SMALL Room #: MARIANELA Valerio#: [id number] Admission: Attend Phys: Discharge: Date of : 54 Report #: [id number] 22:06,Dispatched 22:07,En Route 22:09,On Scene 22:11,At Patient 22:11,ALS Assessment,Response: UnchangedSucceeded, 22:15,3-Lead ECG,Response: UnchangedSucceeded, 22:15,BP: / M,PULSE: 87,RR: R,SPO2: 98 Ox,ETCO2: ,BG: ,PAIN: ,GCS: , 22:17,BP: 119/53 M,PULSE: 106,RR: 18 R,SPO2: 98 Ox,ETCO2: ,B,PAIN: 8,GCS: 15, 22:19,12-Lead ECG,Response: UnchangedFailed, 22:19,BP: / M,PULSE: 102,RR: R,SPO2: Ox,ETCO2: ,BG: ,PAIN: ,GCS: , 22:21,Aspirin - 324 Milligrams (mg) - Oral,Response: Unchanged 22:23,Saline Lock 0cc 20 ga Site: Antecubital-Left,Response: UnchangedFailed, 22:24,BP: 109/73 M,PULSE: 103,RR: R,SPO2: Ox,ETCO2: ,BG: ,PAIN: ,GCS: , 22:24,12-Lead ECG,Response: UnchangedSucceeded, 22:24,BP: / M,PULSE: ,RR: R,SPO2: Ox,ETCO2: ,BG: ,PAIN: ,GCS: , 22:25,Saline Lock 0cc 20 ga Site: Antecubital-Right,Response: UnchangedFailed, 22:27,Depart Scene 22:29,BP: 121/80 M,PULSE: 105,RR: R,SPO2: Ox,ETCO2: ,BG: ,PAIN: ,GCS: , 22:35,BP: 94/66 M,PULSE: 107,RR: 18 R,SPO2: 97 Ox,ETCO2: ,BG: ,PAIN: 8,GCS: 15, 22:37,At Destination 22:49,Call Closed Disclaimer v1.1 Copyright 2020 [employer] This EMS Care Summary contains data elements from the applicable legal record (which may be displayed differently). It is designed to provide pertinent information for the following purposes: continuity of care, clinical quality, and state data reporting. The complete legal record is available to ED staff and administrators of the receiving hospital in [facility]'s Patient Tracker. All data is provided "as is."
[2021-03-05 22:51] VITALS: BP 115/50
[2021-03-05 23:45] LABS: HEMATOCRIT 46.1 % (42.0-52.0); HEMOGLOBIN 15.5 gm/dL (14.0-18.0); MCH 30.5 pg (26.0-34.0); MCHC 33.6 g/dL (28.0-37.0); MCV 90.8 fL (80.0-100.0); PLATELET COUNT 295 thou/uL (150-400); RBC 5.08 mil/uL (4.50-6.00); WBC 22.6 thou/uL (4.0-11.0)
[2021-03-05 23:52] LABS: ANION GAP 12 mmol/L (7-16); BUN 46 mg/dL (7-18); CALCIUM 9.3 mg/dL (8.5-10.1); CHLORIDE 100 mmol/L (98-107); CO2 23 mmol/L (21-32); CREATININE 2.8 mg/dL (0.7-1.3); GLUCOSE 123 mg/dL (74-106); POTASSIUM 4.5 mmol/L (3.5-5.1); SODIUM 135 mmol/L (136-145)
[2021-03-06] VITALS (7 sets, daily range): BP systolic 105–121; BP diastolic 41–70
[2021-03-06 00:01] LABS: TROPONIN-I <0.06 ng/mL (<0.06)
[2021-03-06 00:17] LABS: ABSOLUTE NEUTROPHILS 20.3 thou/uL (1.4-8.2); LARGE PLATELETS FEW; PLATELET ESTIMATE NORMAL
[2021-03-06] MEDS ORDERED: CLOPIDOGREL75 MG PO (01:36)
[2021-03-06] MEDS ORDERED: NEXLIZET 180-11 EACH PO (01:37)
[2021-03-06 01:52] LABS: URINE BILIRUBIN NEGATIVE (Negative); URINE BLOOD NEGATIVE (Negative); URINE CLARITY CLEAR; URINE COLOR YELLOW; URINE GLUCOSE-RANDOM* NEGATIVE (Negative); URINE KETONES NEGATIVE (Negative); URINE LEUKOCYTES-REFLEX NEGATIVE (Negative); URINE NITRITE-REFLEX NEGATIVE (Negative); URINE PROTEIN (DIPSTICK) NEGATIVE (Negative); URINE SPECIFIC GRAVITY >= 1.030 (1.005-1.035); URINE UROBILINOGEN 0.2 E.U./dl (0.2-1.0)
[2021-03-06 05:37] LABS: HEMATOCRIT 46.1 % (42.0-52.0); HEMOGLOBIN 15.3 gm/dL (14.0-18.0); MCH 30.6 pg (26.0-34.0); MCHC 33.1 g/dL (28.0-37.0); MCV 92.4 fL (80.0-100.0); RBC 4.99 mil/uL (4.50-6.00); RDW 14.1 % (10.5-14.5); WBC 20.9 thou/uL (4.0-11.0)
[2021-03-06 06:00] LABS: ANION GAP 14 mmol/L (7-16); BUN 41 mg/dL (7-18); CALCIUM 8.5 mg/dL (8.5-10.1); CHLORIDE 101 mmol/L (98-107); CO2 20 mmol/L (21-32); GLUCOSE 100 mg/dL (74-106); POTASSIUM 3.9 mmol/L (3.5-5.1); SODIUM 135 mmol/L (136-145)
[2021-03-06 06:01] LABS: APTT 34.1 Seconds (24.5-32.8); INR 1.14; PROTIME 12.3 Seconds (10.5-12.1)
[2021-03-06 06:09] LABS: TROPONIN-I <0.06 ng/mL (<0.06)
[2021-03-06 07:16] LABS: CHOLESTEROL 180 mg/dL (<200); HDL CHOLESTEROL 49 mg/dL (>40); LDL CHOLESTEROL 107 mg/dL (<100); TC:HDL 3.7 Ratio (Not establshd); TRIGLYCERIDE 122 mg/dL (<150); VLDL 24 mg/dL (<40)
--- NOTE | 2021-03-06 07:23 | EKG ---
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 : 1950 Requested By: Reena Gibson Order Number: [id number] MD: Almas Hale Measurements Intervals [place] Rate: 106 P: 38 AL: 154 QRS: 62 QRSD: 86 T: 68 QT: 327 QTc: 435 Interpretive Statements Sinus tachycardia Anterior infarct, old ST elevation, consider early inferior injury Compared to ECG 10/01/2017 08:01:09 ST (T wave) deviation now present Sinus rhythm no longer present Myocardial infarct finding still present Electronically Signed On 03-06-2021 7:23:09 CDT by Almas Hale [email or web address] <ELECTRONICALLY SIGNED> By: Almas Hale MD, FACC 03/06/21 0723 2246 2246 Almas Hale MD, [facility] /EPI
--- NOTE | 2021-03-06 07:40 | NUR ---
ASSUMED CARE OF PT AT 0345 FROM ER, PT WAS ADMITED WITH ACUTE CP. UPON ARRIVAL TO UNIT AND AMBULATION INTO BED PT BEGAN TO C/O CP 06/14. CP PROTOCOL WAS INITIATED WITH 2L O2 VIA NC, NITRO AND EKG. UPON REASSESMENT PAIN HAD NOT SUBSIDED WITH NITRO, MANAGER PEDIATRIC CHARLES GIRON ORDERED, NITRO PASTE AND HEPARIN DRIP, AND MORPHINE IVP. UPON REASSESSMENT OF PAIN AFTER ADMINISTRATION OF MORPHINE, AND SECOND NITRO PILL, PT STATED MILD RELIEF 04/14. 0500 1INCH OF NITRO PAST APPLIED TO RIGHT CHEST AND UPON REASSESSMENT PATIENT WAS SLEEPING IN NO APARENT DISTRESS.0620 HEPARIN INITIATED.
[2021-03-06 09:25] LABS: AMP/METHAMP Negative (Negative); BARBITURATES Negative (Negative); BENZODIAZEPINES POSITIVE (Negative); COCAINE Negative (Negative); METHADONE Negative (Negative); OPIATES POSITIVE (Negative); PCP Negative (Negative)
--- NOTE | 2021-03-06 11:56 | 2DMMODE ---
[facility] [place] [address] 2 D/M-MODE ECHOCARDIOGRAM Name: MARIBETH SMALL Room #: 219-P ADM IN M.R.#: [id number] Admission: 03/06/21 Attend Phys: Mateus Gentile MD Discharge: Date of : 54 Report #: [id number] THIS REPORT FOR: cc: Lucius Humphrey MD, Steven A. MD Santiago, Patrick MD [facility] ~ APPROVED REPORT Study performed: 03/06/2021 10:32:59 EXAM: Comprehensive 2D, Doppler, and color-flow Echocardiogram Patient Location: Bedside Room #: 219 Status: routine BSA: 2.16 HR: 97 bpm BP: 105/54 mmHg Rhythm: NSR Other Information Study Quality: Good Indications Chest Pain 2D Dimensions RVDd: 29.62 mm IVSd: 8.64 (7-11mm) LVOT Diam: 23.11 (18-24mm) LVDd: 53.80 mm PWd: 8.83 (7-11mm) Ascending Ao: 32.99 (22-36mm) LVDs: 37.82 (25-40mm) Left Atrium: 36.31 (27-40mm) Aortic Root: 36.10 mm IVC: 16.00 mm Volumes Left Atrial Volume (Systole) Single Plane 4CH: 66.04 mL Single Plane 2CH: 37.71 mL LA ESV Index: 25.00 mL/m2 Aortic Valve AoV Peak Homer.: 1.37 m/s AO Peak Gr.: 7.56 mmHg LVOT Max P.41 mmHg LVOT Max V: 1.16 m/s KHARI Vmax: 3.54 cm2 [facility] [employer] [address] [place] [address] 2 D/M-MODE ECHOCARDIOGRAM Name: SMALLMARIBETH Room #: 219-[facility]#: [id number] Admission: 03/06/21 Attend Phys: Mateus Gentile, Discharge: Date of : 54 Report #: [id number] Mitral Valve E/A Ratio: 0.9 MV Decel. Time: 207.83 ms MV E Max Homer.: 0.82 m/s MV A Homer.: 0.92 m/s MV PHT: 60.27 ms IVRT: 124.57 ms Pulmonary Valve PV Peak Homer.: 0.93 m/s PV Peak Gr.: 3.44 mmHg Pulmonary Vein P Vein S: 0.37 m/s P Vein A: 0.29 m/s P Vein D: 0.24 m/s P Vein A Dur.: 83.0 msec P Vein S/D Ratio: 1.54 Left Ventricle The left ventricle is normal size. There is normal LV segmental wall motion. There is normal left ventricular wall thickness. Left ventricular systolic function is normal. The left ventricular ejection fraction is within the normal range. LVEF is 50-55%. Grade I - abnormal relaxation pattern. Right Ventricle The right ventricle is normal size. The right ventricular systolic function is normal. Atria The left atrium size is normal. The right atrium size is normal. Aortic Valve The aortic valve is normal in structure. No aortic regurgitation is present. There is no aortic valvular stenosis. Mitral Valve The mitral valve is normal in structure. There is no mitral valve regurgitation noted. No evidence of mitral valve stenosis. Tricuspid Valve The tricuspid valve is normal in structure. There is no tricuspid valve regurgitation noted. Pulmonic Valve The pulmonary valve is normal in structure. [place] [address] 2 D/M-MODE ECHOCARDIOGRAM Name: SMALLMARIBETH Room #: 219-P [facility] [place] [facility]#: [id number] Admission: 03/06/21 Attend Phys: Mateus Gentile, Discharge: Date of : 54 Report #: [id number] valvular regurgitation. Great Vessels The aortic root is normal in size. IVC is normal in size and collapses >50% with inspiration. Pericardium There is no pericardial effusion. <Conclusion> Normal left ventricular size/wall thickness Ejection fraction 50-55% mild anteroseptal hypokineses Grade 1 diastolic dysfunction Normal right ventricular size/function Normal atrial size Color-flow Doppler study was performed of the aortic/mitral/tricuspid/pulmonary valve Normal aortic/mitral valve structure and function No tricuspid valve insufficiency No pericardial effusion Normal aortic root size <ELECTRONICALLY SIGNED> By: Almas Hale MD, FACC 03/06/21 1156 1156 1156 Almas Hale MD, FACC /INF
[2021-03-06 13:38] LABS: D-DIMER 0.48 ug/mLFEU (0.19-0.50)
[2021-03-06 13:43] LABS: APTT > 139.0 Seconds (24.5-32.8)
--- NOTE | 2021-03-06 15:22 | NUR ---
Chart reviewed and case discussed with the care team. Pt admitted from home with cp after mowing the yard. Cardiac hx is extensive and workup is in progress with renal us and heart cath anticipated today. The pt's pcp is Dr. Humphrey. He lives with his Darlin and was indep and active prior to admission. No cm interventions indicated at this time. Will follow along should dc needs arise.
--- NOTE | 2021-03-06 17:19 | EKG ---
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 : 1950 Requested By: Sabrina Chowdhury Order Number: [id number] MD: Almas Hale Measurements Intervals [place] Rate: 97 P: 64 ID: [id number] QRS: 82 QRSD: 90 T: 77 QT: 340 QTc: 432 Interpretive Statements Sinus rhythm Anterior infarct, old Artifact in lead(s) I,aVR,aVL,aVF,V1,V2 Compared to ECG 03/05/2021 22:46:04 Sinus tachycardia no longer present ST (T wave) deviation still present Electronically Signed On 03-06-2021 17:19:05 CDT by Almas Hale [email or web address] <ELECTRONICALLY SIGNED> By: Almas Hale MD, [facility] 03/06/21 1719 0357 0357 Almas Hale MD, [facility] /EPI
--- NOTE | 2021-03-06 18:15 | NUR ---
PATIENT HAD 2 CARDIAC STENTS PER REPORT. RIGHT GROIN SITE REMAINS CDI, NO BLEEDING OR HEMATOMA NOTED. PATIENT REPORTS "I FEEL SO MUCH BETTER NOW" AFTER STENTS PLACED. VSS. NO OTHER ACUTE CHANGES THIS SHIFT.
[2021-03-07 00:06] LABS: GLYCOHEMOGLOBIN (HGB A1C) 5.8 % (4.8-5.6)
[2021-03-07 03:31] VITALS: BP 99/53
[2021-03-07 04:33] LABS: ALBUMIN 2.8 g/dL (3.4-5.0); CALCIUM 8.2 mg/dL (8.5-10.1); PHOSPHORUS 1.9 mg/dL (2.5-4.9); POTASSIUM 4.4 mmol/L (3.5-5.1)
--- NOTE | 2021-03-07 04:50 | NUR ---
PT IS ALERT AND ORIENTED X4 . LUNGS ARE CLEAR UP IN ROOM. GROIN SITE CLEAN DRY AND INTACT NO HEMATOMA NOTED. UP THIS AM. NO CHEST PAIN COMMPLAINS OF BACK PAIN NOTED FROM BED.ABDOMEN IS ROUND AND SOFT. PAIN MEDS GIVEN FOR BACK PAIN. RESTED DURING THE NIGHT TIME. CALL LIGHT WITHIN NURING.
[2021-03-07 07:06] VITALS: BP 123/72
[2021-03-07] MEDS ORDERED: COLACE 100 MG100 MG PO (11:14)
[2021-03-07 11:34] VITALS: BP 105/71
[2021-03-07 11:37] VITALS: BP 105/71
--- NOTE | 2021-03-07 12:19 | NUR ---
PATIENT DC TO HOME PER ORDERS. IV DC FROM LEFT FA. PATIENT HAS NO C/O CHEST PAIN OR SHORTNESS OF BREATH. DC ORDERS DISCUSSED WITH PATIENT. PATIENT AMBULATED TO PRIVATE VEHICLE TO HOME.
--- NOTE | 2021-03-11 15:23 | CATHLAB ---
[facility] [address] [place] [address] INVASIVE PROCEDURE REPORT Name: MARIBETH SMALL Room #: 219-P DIS IN M.R.#: [id number] Admission: 03/06/21 Attend Phys: Mateus Gentile MD Discharge: 03/07/21 Date of : 54 Report #: [id number] THIS REPORT FOR: cc: Lucius Humphrey MD, Steven A. MD Lammoglia, Francisco J. 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 Risk Factors Coronary Artery Disease Previous Procedures/Diagnoses Previous PCI Procedure Narrative The Right Groin^ was infiltrated with 1% Lidocaine subcutaneous anesthesia. A PINNACLE 6FR Sheath #[id number] sheath was inserted into the RFA^. Coronary angiography was performed using coronary diagnostic catheters. The right coronary system was accessed and visualized with a JR4 catheter. The left coronary system was accessed and visualized with a JL4 catheter. The left ventricle was accessed and visualized with a PIGTAIL catheter. Left ventricular/Aortic Valve [facility] [place] [place] [address] INVASIVE PROCEDURE REPORT Name: SMALLMARIBETH Room #: 219-P [facility] IN ..#: [id number] Admission: 03/06/21 Attend Phys: Mateus Gentile, Discharge: 03/07/21 Date of : 54 Report #: [id number] gradient assessed via catheter pullback. Closure device was deployed with a 6 Fr MYNXGRIP 6/7F #[id number]. Hemostasis was obtained with manual pressure following sheath removal without any complications. The patient tolerated the procedure well and there were no complications associated with the procedure. There was no hematoma. Intraoperative Conscious Sedation Sedation start time: 1128 Case end Time: 1215 Morphine: 4 mg Fluoro Time: 7.30 minutes Dose: DAP 49385.70 cGycm2 2295 mGy Contrast Type and Amount: Visipaque 160 ml Coronary Angiography The patient's coronary anatomy is right dominant. Diagnostic Cath Left Main Moderate caliber vessel of normal origin trifurcates left into descending, ramus intermedius, left circumflex free of high-grade disease. There is mild plaquing proximally LAD Moderate caliber type III vessel. The proximal mid LAD there is a prior stent noted with irregularities and in terminal narrowing of approximately 30%. The vessel continues in the interventricular sulcus giving rise to septal diagonal branches. First diagonal branch arose prior to the origin of the stent. Diagonal 1 Small caliber vessel with a 50% ostial lesion then continues along the anterolateral wall free of high-grade disease Circumflex Moderate caliber vessel gives rise to a marginal lateral wall branch. There is luminal irregularities noted. Then terminates as a posterior atrial branch extending to the right and left atrium posteriorly. OM1 Moderate caliber vessel with mild irregularities no high-grade lesions are noted Right Coronary Large-caliber vessel of normal origin which has diffuse mild irregularities throughout its course. In the proximal portion before the acute margin there is a narrowing that appears to be grossly 60% in diameter narrowing but there is a focal point that appears to be higher grade. The vessel continues on to the crux of the heart gives rise to posterior descending artery and terminates the posterior wall branch R PDA Moderate caliber vessel rapidly tapering tortuous in its course with moderate lesions that do not appear to be [address] [address] INVASIVE PROCEDURE REPORT Name: MARIBETH SMALL Room #: 219-P [facility] IN M.R.#: [id number] Admission: 03/06/21 Attend Phys: Mateus Gentile, Discharge: 03/07/21 Date of : 54 Report #: [id number] flow-limiting Ramus Moderate caliber vessel without high-grade lesions noted, it courses on the lateral aspect the heart terminates a trifurcating vessel Left Ventriculography Left Ventriculography was not performed. Hemodynamics The aortic pressure is 121/69 mmHg with a mean of 91 mmHg. The left ventricular pressure is 136/10 mmHg with a mean of mmHg. The left ventricular end diastolic pressure is 32 mmHg. Pullback from the left ventricle to the aorta revealed a mm gradient across the aortic valve. PCI Technique Decision was made to proceed with revascularization of the right coronary lesion now. Reason for this that was the absence of significant disease in the left coronary system and inferior EKG changes noted on admission with classic symptoms. There was haziness consistent with thrombus. A 6 [place] JR4 catheter was then engaged with a coronary ostium and wire was advanced. This is now 0.014 steerable wire. Following deployment of the wire the stent was positioned and deployed to encompass the eccentric higher grade portion of the lesion. This was dilated per stent protocol and taken to quarter size. The proximal portion of the lesion was still evident although not high-grade a second short stent of 8 mm in length was positioned proximal to the initial stent and deployed. Subsequent to this multiple inflations were performed to maximally deployed the 2 stents. No loss of side branches normalization intraluminal thrombus identified. Patient tolerated procedure well. Full inflation pressures and number of inflations were noted in the procedure log. PCI Technique Lesion Percutaneous coronary intervention was performed on the mid right coronary artery. A VISTA 6FR JR 4 #[id number] Guide Catheter was used to engage the RCA ostium. A Luge Wire .014 x 182CM #[id number] Interventional Guidewire was used to cross the lesion. STENT DEPLOYMENT A drug-eluting stent RESOLUTE ENRIQUE OTW 3.5 X 15 #[id number] was inserted and inflated up to 12.00atm for 11seconds. Additional Inflation: 12.00atm for 9seconds. PCI Technique Lesion 2 [facility] [address] [place] [address] INVASIVE PROCEDURE REPORT Name: MARIBETH SMALL Room #: 219-P [facility] IN [facility]#: [id number] Admission: 03/06/21 Attend Phys: Mateus Gentile, Discharge: 03/07/21 Date of : 54 Report #: [id number] Percutaneous Coronary Intervention was performed on the proximal right coronary artery. A VISTA 6FR JR 4 #[id number] Guide Catheter was used to engage the RCA ostium. A Luge Wire .014 x 182CM #[id number] Interventional Guidewire was used to cross the lesion. Stent Deployment A drug-eluting stent RESOLUTE ENRIQUE OTW 3.5 X 12 #[id number] was inserted and inflated up to 14.00atm for 10seconds. Additional Inflation: 14.00atm for 7seconds. Additional Inflation: 14.00atm for 9seconds. Conclusion 1. Coronary disease significant single-vessel with moderate two-vessel 2. Abnormal hemodynamics elevated limited end-diastolic pressures 3. Successful percutaneous revascularization and stenting of the proximal right coronary artery Recommendations Cardiac Risk Reduction Program Medical Therapy Dual antiplatelet therapy will be initiated him aggressively followed <ELECTRONICALLY SIGNED> By: Alex Colindres MD 03/11/21 1523 1523 1523 Alex Colindres MD /INF
== END 2021-03-07 12:09 | disposition home or self-care (01) | DRG 246 ==
LOC: ER 22:40 → EROBS 03-06 03:22 → 2N 03-06 03:22
PROVIDERS: Internal Medicine; Internal Medicine Nephrology; Nurse Practitioner Family; Student in an Organized Health Care Education/Training Program; ADMIT Internal Medicine; ATTEND Internal Medicine
PROC: B211YZZ Fluoroscopy of Multiple Coronary Arteries using Other Contrast (ICD-10-PCS; principal; 2021-03-06)
PROC: 4A023N7 Measurement of Cardiac Sampling and Pressure, Left Heart, Percutaneous Approach (ICD-10-PCS; principal; 2021-03-06)
PROC: 027035Z Dilation of Coronary Artery, One Artery with Two Drug-eluting Intraluminal Devices, Percutaneous Approach (ICD-10-PCS; principal; 2021-03-06)
DX: I25.110 Atherosclerotic heart disease of native coronary artery with unstable angina pectoris (principal); R65.11 Systemic inflammatory response syndrome (SIRS) of non-infectious origin with acute organ dysfunction; N17.0 Acute kidney failure with tubular necrosis; E03.9 Hypothyroidism, unspecified; G89.29 Other chronic pain; M54.9 Dorsalgia, unspecified; E78.5 Hyperlipidemia, unspecified; J44.9 Chronic obstructive pulmonary disease, unspecified; N18.2 Chronic kidney disease, stage 2 (mild); F17.210 Nicotine dependence, cigarettes, uncomplicated; I12.9 Hypertensive chronic kidney disease with stage 1 through stage 4 chronic kidney disease, or unspecified chronic kidney disease; E11.22 Type 2 diabetes mellitus with diabetic chronic kidney disease; E66.9 Obesity, unspecified; I25.5 Ischemic cardiomyopathy; Z20.822 Contact with and (suspected) exposure to COVID-19; Z88.8 Allergy status to other drugs, medicaments and biological substances; Z91.041 Radiographic dye allergy status; Z95.5 Presence of coronary angioplasty implant and graft; Z90.81 Acquired absence of spleen; Z87.442 Personal history of urinary calculi; Z71.6 Tobacco abuse counseling; Z79.82 Long term (current) use of aspirin; Z79.899 Other long term (current) drug therapy; Z68.33 Body mass index [BMI] 33.0-33.9, adult
CPT/HCPCS: 10081

== ENCOUNTER → 2021-05-14 | Outpatient (CLI) | payer OTHER ==
[~2021-05-14] MED LIST changes: +CLOPIDOGREL75 MG PO; +COLACE 100 MG100 MG PO; +NEXLIZET 180-11 EACH PO
== END ==
LOC: SJCVC 09:39
PROVIDERS: ATTEND Nurse Practitioner Adult Health
DX: R94.31 Abnormal electrocardiogram [ECG] [EKG] (principal); I25.10 Atherosclerotic heart disease of native coronary artery without angina pectoris; I10 Essential (primary) hypertension; E78.00 Pure hypercholesterolemia, unspecified; I42.9 Cardiomyopathy, unspecified; M54.9 Dorsalgia, unspecified; E11.22 Type 2 diabetes mellitus with diabetic chronic kidney disease; I12.9 Hypertensive chronic kidney disease with stage 1 through stage 4 chronic kidney disease, or unspecified chronic kidney disease; N18.9 Chronic kidney disease, unspecified; E78.5 Hyperlipidemia, unspecified; E03.9 Hypothyroidism, unspecified; Z79.82 Long term (current) use of aspirin; Z87.891 Personal history of nicotine dependence; Z72.89 Other problems related to lifestyle; Z88.1 Allergy status to other antibiotic agents; Z88.8 Allergy status to other drugs, medicaments and biological substances